=== PATIENT | male | born 1995 | race Caucasian/White ===

== ENCOUNTER → 2018-05-24 | Outpatient (CLI) | payer BC ==
--- NOTE | 2018-05-24 14:01 | Diagnostic Imaging Report ---
EXAM: Scrotal Ultrasound INDICATION: \S\LT GROIN PAIN COMPARISON: None TECHNIQUE: Transverse and longitudinal images were obtained of the scrotum with grayscale imaging, color Doppler and spectral waveform analysis. FINDINGS: Right testis: Size: 4.2 x 2.0 x 3.0 cm, normal in size. Echogenicity: Normal Mass/Cysts: None Left testis: Size: 4.4 x 2.1 x 2.8 cm, normal in size. Echogenicity: Normal Mass/Cysts: None Epididymis: Appearance: Normal in size without increased vascularity. Mass/Cysts: Single 0.2 cm anechoic cyst in the right and left epididymis. Extratesticular: Masses: None Fluid collections: None Doppler: Normal arterial flow to both testes and symmetrical flow on color Doppler evaluation is seen. No evidence of testicular torsion. IMPRESSION: 1. No evidence of testicular torsion. 2. Single right and left small simple epididymal cysts, otherwise, normal scrotal ultrasound exam. Signed by: Dr. Harika Bach M.D. on 05/24/2018 1:57 PM
== END ==
LOC: US 11:52
PROVIDERS: ATTEND Family Medicine
DX: N50.812 Left testicular pain (principal); R10.32 Left lower quadrant pain
CPT/HCPCS: 76870; 93976